=== PATIENT | male | born 1990 ===

== ENCOUNTER 2021-05-15 09:26 | Emergency (ER) | payer SELFPAY ==
[2021-05-15] MEDS ORDERED: Ketorolac 60 MG/2 ML SDV IM ONE (09:59)
[2021-05-15] MEDS ORDERED: Orphenadrine 60 MG/2 ML Inj IM ONE (10:00)
== END 2021-05-15 11:24 | disposition home or self-care (01) ==
LOC: MW.ED 09:26
DX: M54.42 Lumbago with sciatica, left side (principal)
CPT/HCPCS: 72100; 96372; 99283; J1885; J2360